=== PATIENT | male | born 1995 | race Caucasian/White ===

== ENCOUNTER 2017-04-20 16:43 | Emergency (ER) | payer BC ==
[~2017-04-20] VITALS: Ht 177.8 cm; Wt 81.6 kg
[~2017-04-20 16:43] MED LIST: MOTRIN600 MG PO; VICODIN 5/500 505 MG PO
[2017-04-20] MEDS ORDERED: SEPTDS PO (17:03)
[2017-04-20] MEDS ORDERED: CLINDAMYCIN150 MG PO (17:09)
== END 2017-04-20 22:26 | disposition home or self-care (01) ==
LOC: ED 16:43
DX: L02.11 Cutaneous abscess of neck (principal); F17.200 Nicotine dependence, unspecified, uncomplicated; Z88.1 Allergy status to other antibiotic agents

== ENCOUNTER 2024-08-31 08:11 | Emergency (ER) | payer BC ==
[~2024-08-31] VITALS: Ht 180.3 cm; Wt 77.3 kg
[~2024-08-31 08:11] MED LIST changes: +CLINDAMYCIN150 MG PO; +SEPTDS PO
[2024-08-31] MEDS ORDERED: SODIUM CHLORIDE 0.9% 1,000 ML IV ONE (08:35)
[2024-08-31] MEDS ORDERED: diphenhydrAMINE hydrochloride 50 MG/ML VIAL IV ONE (08:40)
[2024-08-31] MEDS ORDERED: Metoclopramide Hydrochloride 10 MG/2 ML VIAL IV ONE (08:40)
[2024-08-31] MEDS ORDERED: FAMOTIDINE 50 ML IV ONE (08:40)
[2024-08-31] MEDS ORDERED: Dicyclomine Hydrochloride 10 MG CAP PO ONE (08:40)
[2024-08-31 08:48] LABS: BASO % 0.7 % (0.0-1.0); EOS # 0.1 10*3/uL (0.0-0.4); EOS % 2.1 % (1.0-4.0); HEMATOCRIT 46.7 % (42.0-52.0); MEAN CELL VOLUME 86.6 fl (80.0-94.0); MEAN CORPUSCULAR HGB 29.3 pg (27.0-31.0); MEAN CORPUSCULAR HGB CONC 33.8 g/dl (33.0-37.0); MEAN PLATELET VOLUME 9.5 fl (9.6-12.3); MONO # 0.5 10*3/uL (0.1-1.0); MONO % 8.5 % (3.0-9.0); NEUT % 64.3 % (47.0-73.0); PLATELET COUNT AUTOMATED 261 10*3/uL (130-400); RED BLOOD COUNT 5.39 10*6/uL (4.50-5.90); RED CELL DISTRI WIDTH 11.1 % (0-14.5); WHITE BLOOD COUNT 6.2 10*3/uL (4.8-10.8)
[2024-08-31 09:12] LABS: BUN 12 mg/dl (9-23); CHLORIDE 102 mmol/L (98-107); LIPASE 38 U/L (12-53); POTASSIUM 4.4 mmol/L (3.4-5.1)
[2024-08-31] MEDS ORDERED: DICYCLOMINE HYD20 MG PO (09:29)
[2024-08-31] MEDS ORDERED: REGLAN10 M1 PO (09:29)
== END 2024-08-31 10:18 | disposition home or self-care (01) ==
LOC: ED 08:11
PROVIDERS: Emergency Medicine
DX: R10.84 Generalized abdominal pain (principal); R11.2 Nausea with vomiting, unspecified; R19.7 Diarrhea, unspecified; Z88.1 Allergy status to other antibiotic agents